=== PATIENT | male | born 1950 | race Two or more races ===

== ENCOUNTER 2025-02-08 15:05 | Emergency (ER) | payer OTHER ==
[~2025-02-08] VITALS: Ht 170.2 cm; Wt 81.6 kg
[2025-02-08] MEDS ORDERED: TETANUS & DIPHTHERIA TOX,ADULT 0.5 ML VIAL IM ONE (17:45)
[2025-02-08] MEDS ORDERED: ACETAMINOPHEN 500 MG GEL..CAP PO ONE ×2 (17:45→18:14)
[2025-02-08] MEDS ORDERED: LIDOCAINE HCL 1% 10ML VIAL ONE (18:14)
[2025-02-08] MEDS ORDERED: DIPHTH,PERTUSS(ACELL),TET VAC 0.5 ML SYRINGE IM ONE (18:14)
[2025-02-08] MEDS ORDERED: TYLENOL325 MG (23:31)
== END 2025-02-08 23:51 | disposition home or self-care (01) ==
LOC: ER 15:05
DX: S01.122A Laceration with foreign body of left eyelid and periocular area, initial encounter (principal); W18.39XA Other fall on same level, initial encounter; Y93.89 Activity, other specified; Y92.89 Other specified places as the place of occurrence of the external cause; Z86.73 Personal history of transient ischemic attack (TIA), and cerebral infarction without residual deficits; I10 Essential (primary) hypertension; E11.9 Type 2 diabetes mellitus without complications
CPT/HCPCS: 12013; 70450; 72125; 90471; 90714; 99284; J1670